=== PATIENT | male | born 1945 | race Hispanic/Latino ===

== ENCOUNTER 2018-12-08 14:47 | Emergency (ER) | payer MEDICARE ==
[~2018-12-08] VITALS: Ht 170.2 cm; Wt 90.7 kg
[2018-12-08] MEDS ORDERED: ALBUTEROL/IPRATROPIUM 3 ML NEB ONE ×2 (15:08→15:37)
[2018-12-08] MEDS ORDERED: ALBUTEROL/IPRATROPIUM 3 ML NEB NEB ONE (15:15)
--- NOTE | 2018-12-08 15:30 | NUR ---
PT TO BE ADMITTED AND TRANSFERED TO [facility], PT AND FAMILY AWARE OF POC.
--- NOTE | 2018-12-08 15:39 | Diagnostic Imaging Report ---
EXAMINATION: CXR 2 VIEW - HOPD INDICATION: Shortness of breath COMPARISON: None FINDINGS: LINES/TUBES:None LUNGS:The lungs are mildly hyperinflated. Mild biapical pleural parenchymal thickening/scarring. Bilateral emphysematous changes. No focal consolidation or pulmonary edema. PLEURA:No pleural effusion or pneumothorax. MEDIASTINUM:The cardiomediastinal silhouette appears normal in size and shape. BONES/SOFT TISSUES:No acute osseous injury. ABDOMEN:No free air under the diaphragm. IMPRESSION: Hyperinflated lungs. No focal pneumonia or pulmonary edema. Signed by: Melany Woods MD on 12/08/2018 3:35 PM
[2018-12-08] MEDS ORDERED: ALBUTEROL/IPRATROPIUM 3 ML NEB NEB NR (15:45)
[2018-12-08] MEDS ORDERED: AZITHROMYCIN 500MG/NS 250 ML 250 ML IV ONE (15:45)
[2018-12-08] MEDS ORDERED: METHYLPREDNISOLONE SOD SUCC 125 MG/2ML VIAL IV ONE (15:45)
--- NOTE | 2018-12-08 15:51 | NUR ---
INITIATED TRANSFER TO [facility]
[2018-12-08] MEDS ORDERED: METHYLPREDNISOLONE SOD SUCC 125 MG/2ML VIAL ONE (15:57)
[2018-12-08] MEDS ORDERED: AZITHROMYCIN 500MG/NS 250 ML 250 ML ONE (15:58)
[2018-12-08] MEDS ORDERED: CEFTRIAXONE SOD 1 GM/NS 50 ML 50 ML IV ONE ×2 (16:00→16:21)
--- NOTE | 2018-12-08 16:29 | NUR ---
[facility] CALLED FOR TRANSPORT 35 MINUTE ETA
[2018-12-08 17:18] VITALS: BP 171/72
== END 2018-12-08 17:21 | disposition other institution (70) ==
LOC: FSED 14:47
DX: R06.09 Other forms of dyspnea (principal); J44.1 Chronic obstructive pulmonary disease with (acute) exacerbation; J06.9 Acute upper respiratory infection, unspecified
CPT/HCPCS: 71046; 80053; 83880; 85025; 93005; 99284; J0456; J0696; J2930

== ENCOUNTER 2019-09-05 15:14 | Emergency (ER) | payer MEDICARE ==
[~2019-09-05] VITALS: Ht 172.7 cm; Wt 79.4 kg
--- NOTE | 2019-09-05 16:14 | Emergency Department Note ---
History of Present Illnes History of Present Illness Chief Complaint: Skin Rash or Abscess History of Present Illness This is a 74 year old male who presents with 1-2 days of rash to his left flank radiating to his left groin in a bandlike pattern. He states it is pruritic, however where he scratches it causes pain. He's had no similar symptoms in the past. He denies getting a single shot during his life. He had chickenpox as a child. He denies any new medications detergents or other exposures. Arrival Mode: [employer] Required: No Onset (how long ago): day(s) Location: left lowback, flank, abdomen, groin Quality: denies pain Radiation: Reports non-radiation Onset quality: gradual Duration (how long): day(s) Timing of current episode: constant Progression: worsening Chronicity: new Context: Reports recent illness Relieving factors: none Exacerbating factors: none Associated symptoms: Reports denies other symptoms Past Medical/Family History Physician Review I have reviewed the patient's past medical and family history. Any updates have been documented here. Past Medical History Recent Fever: No Clinical Suspicion of Infectio: No New/Unexplained Change in Ment: No Past Medical History: None Past Surgical History: None Social History Smoking Cessation: Never Smoker Other Last Tetanus: UNKNOWN Review of Systems Review of Systems Constitutional: Denies chills, Denies diaphoresis, Denies fever, Denies malaise, Denies weakness Cardiovascular: Reports no symptoms Respiratory: Reports no symptoms Gastrointestinal: Reports no symptoms Genitourinary: Reports no symptoms Musculoskeletal: Reports no symptoms Integumentary: Reports rash Neurological: Reports no symptoms Psychological: Reports no symptoms Endocrine: Reports no symptoms Physical Exam Related Data Allergies: Coded Allergies: No Known Allergies (Unverified , 12/08/18) Physical Exam CONSTITUTIONAL Constitutional: Present well-developed, Present well-nourished HENT HENT: Present normocephalic, Present atraumatic, Present oropharynx clear/moist, Present nose normal EYES NECK PULMONARY Pulmonary: Present effort normal, Present breath sounds normal CARDIOVASCULAR Cardiovascular: Present regular rhythm, Present heart sounds normal, Present capillary refill normal, Present normal rate GASTROINTESTINAL Abdominal: Present soft, Present nontender, Present bowel sounds normal GENITOURINARY SKIN Skin: Present rash (patient with mildly tender rash is posterior in nature and L1 distribution in his mid low back to his groin. It is nonblanching.) MUSCULOSKELETAL NEUROLOGICAL PSYCHOLOGICAL Assessment & Plan Medical Decision Making MDM Presents with a rash consistent with herpes zoster in the L1 dermatomal distribution of his left side. He was discharged with valacyclovir and follow-up with Dr. Gatica. Assessment & Plan Final Impression: (1) Herpes zoster Depart Disposition: HOME, SELF-CARE NA ENAMORADO MD Sep 05, 2019 16:14
== END 2019-09-05 16:25 | disposition home or self-care (01) ==
LOC: FSED 15:30
DX: B02.9 Zoster without complications (principal)
CPT/HCPCS: 99283